=== PATIENT | male | born 1960 ===

== ENCOUNTER 2020-10-22 19:43 | Observation (INO) | payer OTHER ==
--- NOTE | 2020-10-22 22:07 | Event Note ---
ED Screening Note Date of service: 10/22/20 Time: 22:06 ED Screening Note: This initial assessment/diagnostic orders/clinical plan/treatment(s) is/are subject to change based on patients health status, clinical progression and re- assessment by fellow clinical providers in the ED. Further treatment and workup at subsequent clinical providers discretion. Patient/guardian urged not to elope from the ED as their condition may be serious if not clinically assessed and managed. Initial orders include: This is a 60-year-old male in police custody came from the correction with complaints of feeling tired. He was sent to the emergency room for evaluation because of a low heart rate. On examination patient appears to be in no acute distress respiration easy unlabored lungs clear he denies chest pain and shortness of breath his heart rate is 49
[2020-10-22 22:47] LABS: Hematocrit 39.4 % (35.5-45.6); Hemoglobin 12.9 gm/dl (11.8-15.2); Mean Corpuscular HGB Conc 33 % (32-34); Mean Corpuscular Volume 81 fl (84-94); Platelet Count 221 K/mm3 (140-440); Red Cell Distribution Width 13.6 % (13.2-15.2)
[2020-10-22 23:08] LABS: Alanine Aminotransferase 16 units/L (7-56); Blood Urea Nitrogen 21 mg/dL (9-20); Calcium 8.8 mg/dL (8.4-10.2); Hemolysis Index 10
[2020-10-22 23:21] LABS: Total Cells Counted 100
[2020-10-22 23:22] LABS: Band Neutrophils # (Manual) 0.1 K/mm3; RBC Morphology Normal
[2020-10-22 23:24] LABS: BUN/Creatinine Ratio 30
--- NOTE | 2020-10-23 04:07 | Emergency Department Report ---
ED Palpitations HPI - General Chief Complaint: Arrhythmia/Palpitations Stated Complaint: WEAKNESS Time Seen by Provider: 10/23/20 03:28 Source: patient Mode of arrival: Ambulatory Limitations: No Limitations - History of Present Illness Initial Comments: 60-year-old male, history of hypertension, hyperlipidemia, GERD, depression, diabetes, seizures, presents to ED from [facility] with dizziness and bradycardia. Patient states he went to the [facility] at the [facility] to get his insulin for the day. He reported that he was feeling dizzy, lightheaded, and fatigued. Patient states he thought his glucose may be low because he had not eaten. Paperwork from the [facility] shows that vitals were taken and his heart rate was documented at 37, with blood pressure 130/73. Blood glucose was 94. Patient was transferred to the ED for symptomatic bradycardia. Patient denies any dizziness currently. He also denies any nausea, vomiting, chest pain, shortness of breath. -: This evening Context: occured during rest Associated Symptoms: near-syncope. denies: chest pain, shortness of breath, syncope, nausea/vomiting, cough - Related Data Home Medications Medication Instructions Recorded Confirmed Last Taken AtorvaSTATin 10/22/20 Unknown DULoxetine 10/22/20 Unknown Losartan Potassium 10/22/20 Unknown NovoLIN 70/30 10/22/20 Unknown Prilosec 10/22/20 Unknown metFORMIN 10/22/20 Unknown Allergies Allergy/AdvReac Type Severity Reaction Status Date / Time Penicillins Allergy Hives Verified 10/22/20 22:15 ED Review of Systems ROS: Stated complaint: WEAKNESS Other details as noted in HPI Comment: All other systems reviewed and negative Constitutional: denies: chills, fever Respiratory: denies: cough, shortness of breath Cardiovascular: denies: chest pain, palpitations Neurological: other (Patient reports dizziness) ED Past Medical Hx - Past Medical History Previous Medical History?: Yes Hx Hypertension: Yes Hx Diabetes: Yes Additional medical history: High Cholesterol - Surgical History Past Surgical History?: No - Social History Smoking Status: Never Smoker Substance Use Type: None - Medications Home Medications: Home Medications Medication Instructions Recorded Confirmed Last Taken Type AtorvaSTATin 10/22/20 Unknown History DULoxetine 10/22/20 Unknown History Losartan Potassium 10/22/20 Unknown History NovoLIN 70/30 10/22/20 Unknown History Prilosec 10/22/20 Unknown History metFORMIN 10/22/20 Unknown History ED Physical Exam - General Limitations: No Limitations General appearance: alert, in no apparent distress - Head Head exam: Present: atraumatic, normocephalic - Eye Eye exam: Present: normal appearance, EOMI - ENT ENT exam: Present: mucous membranes moist - Neck Neck exam: Present: normal inspection - Respiratory Respiratory exam: Present: normal lung sounds bilaterally. Absent: respiratory distress - Cardiovascular Cardiovascular Exam: Present: normal rhythm, bradycardia - GI/Abdominal GI/Abdominal exam: Present: soft. Absent: distended, tenderness - Extremities Exam Extremities exam: Present: normal inspection - Neurological Exam Neurological exam: Present: alert, oriented X3 - Psychiatric Psychiatric exam: Present: normal affect, normal mood - Skin Skin exam: Present: warm, dry, intact, normal color ED Course Vital Signs 10/22/20 10/23/20 21:58 03:40 Temperature 97.4 F L Pulse Rate 50 L 48 L Respiratory 18 18 Rate Blood Pressure 156/78 Blood Pressure 137/77 [Left] O2 Sat by Pulse 99 99 Oximetry ED Medical Decision Making - Lab Data Result diagrams: 10/22/20 22:23 10/22/20 22:23 - EKG Data -: EKG Interpreted by Me EKG shows normal: sinus rhythm, axis, intervals, QRS complexes, ST-T waves Rate: bradycardia (rate 46) - Medical Decision Making 60-year-old male presents to ED from [facility] with symptomatic bradycardia. Patient reports feeling fatigued, dizzy and lightheaded. At the time his vitals were taken and his heart rate was found to be 37. Here in the ED heart rate has been in the 40s. 46 on EKG. Blood pressure is stable. He denies any dizziness at this time. EKG shows sinus bradycardia, no ST elevations. No change on repeat EKG. Patient does not appear to be on any beta-blockers. Med list includes Metformin, Novolin, omeprazole, atorvastatin, losartan, duloxetine. Will admit to hospitalist, Dr. Granda, due to symptomatic bradycardia Critical care attestation.: If time is entered above; I have spent that time in minutes in the direct care of this critically ill patient, excluding procedure time. ED Disposition Clinical Impression: Symptomatic bradycardia Disposition: OP ADMIT IP TO THIS HOSP Is pt being admited?: Yes Condition: Stable Time of Disposition: 04:26
--- NOTE | 2020-10-23 04:58 | History and Physical Report ---
History of Present Illness Date of examination: 10/23/20 Date of admission: 10/23/20 Chief complaint: Symptomatic bradycardia History of present illness: 60-year-old male, history of hypertension, hyperlipidemia, GERD, depression, diabetes, seizures, presents to ED from [facility] with dizziness and bradycardia. Patient states he went to the [facility] at the [facility] to get his insulin for the day. He reported that he was feeling dizzy, lightheaded, and fa tigued. Patient states he thought his glucose may be low because he had not eaten. Paperwork from the [facility] shows that vitals were taken and his heart rate was documented at 37, with blood pressure 130/73. Blood glucose was 94. Patient was transferred to the ED for symptomatic bradycardia. Patient denies any dizziness currently. He also denies any nausea, vomiting, chest pain, shortness of breath. Patient seen in ED at bedside. Alert oriented x3 non-South Sudanese speaking. Got most of the Information with assistance of the russian language instructor I reviewed lab and vital signs. Blood pressure elevated with low heart rates in 30s and 40s. Patient reports history of hypertension, hyperlipidemia, gastroesophageal reflux disease, diabetes and anxiety depression. Checks x-ray has been ordered. Troponin done negative. At assessment, patient denies chest pain, shortness of breath, nausea and vomiting. Patient also denies tobacco use, alcohol, and illicit drug use. Other ED work-up WBC 7.3, hemoglobin is 12.9, platelets 221, sodium 143, potassium 4.2, creatinine 0.7, glucose serum 111. Checks x-ray-No acute finding Past History Past Medical History: diabetes, GERD, hypertension, hyperlipidemia, seizures Past Surgical History: Other (head laceration/surgery) Social history: other (An inmate) Family history: diabetes (one of the parent diet of heart attack), hypertension Medications and Allergies Allergies Allergy/AdvReac Type Severity Reaction Status Date / Time Penicillins Allergy Hives Verified 10/22/20 22:15 Home Medications Medication Instructions Recorded Confirmed Last Taken Type AtorvaSTATin 10/22/20 Unknown History DULoxetine 10/22/20 Unknown History Losartan Potassium 10/22/20 Unknown History NovoLIN 70/30 10/22/20 Unknown History Prilosec 10/22/20 Unknown History metFORMIN 10/22/20 Unknown History Review of Systems Constitutional: other (syncope), no chronic headaches Ears, nose, mouth and throat: no epistaxis Cardiovascular: no lightheadedness Respiratory: no excessive sputum Gastrointestinal: no melena Rectal: no hemorrhoids Integumentary: no rash, no pruritis Neurological: no head injury Exam - Constitutional Vitals: Temp Pulse Resp BP Pulse Ox 97.4 F L 48 L 18 137/77 99 10/22/20 21:58 10/23/20 03:40 10/23/20 03:40 10/23/20 03:40 10/23/20 03:40 General appearance: Present: no acute distress, well-nourished - EENT Eyes: Present: PERRL ENT: hearing intact, clear oral mucosa - Neck Neck: Present: supple, normal ROM - Respiratory Respiratory effort: normal Respiratory: bilateral: CTA - Cardiovascular Rhythm: other (Bradycardia) Heart Sounds: Present: S1 & S2. Absent: rub, click - Extremities Extremities: pulses symmetrical, No edema Peripheral Pulses: within normal limits - Abdominal General gastrointestinal: Present: soft, non-tender, non-distended, normal bowel sounds Male genitourinary: Present: normal - Integumentary Integumentary: Present: clear, warm, dry - Musculoskeletal Musculoskeletal: gait normal, strength equal bilaterally - Psychiatric Psychiatric: appropriate mood/affect, intact judgment & insight - Neurologic Neurologic: CNII-XII intact, moves all extremities - Allied Health Allied health notes reviewed: nursing HEART Score - HEART Score Troponin: Troponin T < 0.010 ng/mL (0.00-0.029) 10/23/20 00:00 Results - Labs CBC & Chem 7: 10/22/20 22:23 10/22/20 22:23 Labs: Abnormal lab results 10/22/20 10/22/20 Range/Units 22:23 22:23 MCV 81 L (84-94) fl MCH 26 L (28-32) pg Seg Neuts % (Manual) 77.0 H (40.0-70.0) % Lymphocytes # (Manual) 1.0 L (1.2-5.4) K/mm3 Chloride 108.3 H (98-107) mmol/L BUN 21 H (9-20) mg/dL Creatinine 0.7 L (0.8-1.3) mg/dL Glucose 111 H (75-100) mg/dL Assessment and Plan - Patient Problems (1) Symptomatic bradycardia Current Visit: Yes Status: Acute Plan to address problem: ? cause likely secondary to low blood sugar/cardiac related monitor vital signs and heart rate Chest x-ray -follow-up with results Monitor cardiac enzymes and twelve-lead EKG Echocardiogram-f/u with result Consulted agronomy location manager (2) Diabetes Current Visit: Yes Status: Acute Plan to address problem: Check hemoglobin A1c Monitor blood sugar with sliding scale protocol Encourage healthy diet more fruits and vegetable and avoid foods rich in concentrated sweeteners. (3) Hypertension Current Visit: Yes Status: Acute Plan to address problem: Elevated blood pressure Monitor blood pressure, resume home antihypertensive As needed hydralazine Adjust blood pressure medicine if needed (4) Anxiety Current Visit: Yes Status: Acute Plan to address problem: Resume home antianxiety (5) Hyperlipidemia Current Visit: Yes Status: Acute Plan to address problem: Resume home statin (6) Gastroesophageal reflux Current Visit: Yes Status: Acute Plan to address problem: Continue PPI
[2020-10-23] MEDS ORDERED: METOCLOPRAMIDE 10 MG/2 ML INJ IV PRN (05:02)
[2020-10-23] MEDS ORDERED: ALUM-MAG HYDROXIDE-SIMETHICONE 200-200-20MG/5ML ORAL LIQD 30 ML PO PRN (05:02)
[2020-10-23] MEDS ORDERED: ACETAMINOPHEN 325 MG TAB PO PRN (05:02)
[2020-10-23] MEDS ORDERED: HEPARIN 10,000 UNITS/10 ML VIAL IV PRN (05:02)
[2020-10-23] MEDS ORDERED: ONDANSETRON 4 MG/2 ML INJ IV PRN (05:02)
[2020-10-23] MEDS ORDERED: traMADol 50 MG TAB PO PRN (05:13)
[2020-10-23] MEDS ORDERED: traZODone 50 MG TAB PO PRN (05:13)
--- NOTE | 2020-10-23 05:17 | XRay Report ---
CHEST 1 VIEW 10/23/2020 4:35 AM INDICATION / CLINICAL INFORMATION: bradycardia. COMPARISON: None available. FINDINGS: SUPPORT DEVICES: None. HEART / MEDIASTINUM: No significant abnormality. LUNGS / PLEURA: No significant pulmonary or pleural abnormality. No pneumothorax. ADDITIONAL FINDINGS: No significant additional findings. IMPRESSION: 1. No acute findings. Signer Name: Espinoza Hwang MD Signed: 10/23/2020 5:12 AM Workstation Name: [id number]
--- NOTE | 2020-10-23 05:37 | Cat Scan Report ---
CT HEAD WITHOUT CONTRAST INDICATION / CLINICAL INFORMATION: Syncope. TECHNIQUE: All CT scans at this location are performed using CT dose reduction for ALARA by means of automated exposure control. COMPARISON: None available. FINDINGS: HEMORRHAGE: None. EXTRA-AXIAL SPACES: Normal in size and morphology for the patient's age. VENTRICULAR SYSTEM: Normal in size and morphology for the patient's age. CEREBRAL PARENCHYMA: No significant abnormality. No acute territorial infarct. MIDLINE SHIFT / HERNIATION: None. CEREBELLUM / BRAINSTEM: No significant abnormality. ORBITS: Normal as visualized. SOFT TISSUES: No significant abnormality. SKULL: No significant abnormality. PARANASAL SINUSES / MASTOID AIR CELLS: Normal as visualized. ADDITIONAL FINDINGS: None. IMPRESSION: 1. No acute intracranial abnormality. Signer Name: Espinoza Hwang MD Signed: 10/23/2020 5:32 AM Workstation Name: [id number]
[2020-10-23] MEDS: hydrALAZINE 20 MG/1 ML INJ IV PRN ×2 (06:14→12:10)
[2020-10-23] MEDS: ENOXAPARIN 40 MG/0.4 ML INJ SUB-Q SCH (09:45)
[2020-10-23] MEDS ORDERED: LOSARTAN 50 MG TAB PO SCH (10:00)
[2020-10-23] MEDS ORDERED: FAMOTIDINE 20 MG/2 ML INJ IV SCH (10:00)
--- NOTE | 2020-10-23 11:34 | Event Note ---
Date: 10/23/20 full consult dictated thanks
--- NOTE | 2020-10-23 13:09 | Event Note ---
Date: 10/23/20 Patient admitted for symptomatic bradycardia Patient chart reviewed cardiology consult appreciated
--- NOTE | 2020-10-23 13:35 | Consultation ---
Referred by hospitalist service. HISTORY OF PRESENT ILLNESS: The patient is a pleasant 60-year-old gentleman referred by the hospitalist service for evaluation for syncope, questionable symptomatic bradycardia. He has a history of hypertension, hyperlipidemia, GERD, depression, diabetes, seizures. He presents to the Emergency Room from [facility] with dizziness and bradycardia. Some question of his heart rate being in the 30s. He is seen on tele. Denies any symptoms. No chest pain, shortness of breath. Guard is present. No syncope or presyncope since hospitalized. No chest pain, fevers, chills, nausea or vomiting. SOCIAL HISTORY: Denies tobacco or alcohol use. PAST MEDICAL HISTORY: As aforementioned. FAMILY HISTORY: Diabetes, one parent of heart attack and hypertension. ALLERGIES: PENICILLIN. MEDICATIONS: Inpatient and outpatient medications reviewed. REVIEW OF SYSTEMS: As per HPI. PHYSICAL EXAMINATION: VITAL SIGNS: Blood pressure is 120/80, afebrile. Tele reveals sinus rhythm in the high 40s and 50s. No AV block or pauses. O2 sats 99% on room air. GENERAL: This is a middle-aged, well-nourished male in no apparent distress, oriented x 3. HEENT: Sclerae are anicteric. PERRLA. NECK: Supple, no masses, no JVD. CHEST: Clear to auscultation bilaterally. Good air movement. CARDIOVASCULAR: Regular rhythm, S1, S2. ABDOMEN: Soft, nontender, nondistended. Normoactive bowel sounds in all 4 quadrants. No mass or bruits. EXTREMITIES: No cyanosis, clubbing, edema. Good peripheral pulses. SKIN: Intact. No rashes. LABORATORY DATA: Chest x-ray is unremarkable per radiology. Head CT also unremarkable per radiology. EKG reveals sinus bradycardia, heart rate of 50. No ST segment shift. Troponin negative x 1. Creatinine 0.7, potassium 4.2. Platelets 221, hemoglobin 12.9, hematocrit 39.4. ASSESSMENT AND PLAN: In summary, the patient is a 60-year-old gentleman who is referred from [facility] for questionable syncope, sinus bradycardia. He is normotensive or hypertensive without evidence of AV block or pathological bradycardia. We will check an echocardiogram and stress test in a.m. DVT prophylaxis. Thank you for this consultation. I will be happy to follow along with you. JOB# [id number] SBCarlyle/YAMILETH
[2020-10-23 13:59] LABS: INR 1.07 (0.87-1.13)
[2020-10-23] MEDS: DULoxetine 30 MG CAP PO SCH (14:02)
[2020-10-23] MEDS: PANTOPRAZOLE 40 MG TAB PO SCH (14:02)
[2020-10-23 14:05] LABS: Creatine Kinase MB 2.3 ng/mL (0.0-4.0)
[2020-10-23] MEDS: metFORMIN 500 MG TAB PO SCH (16:39)
[2020-10-23] MEDS: INSULIN NPH/REGULAR 70/30 INJ SUB-Q SCH (16:40)
[2020-10-23] MEDS: INSULIN LISPRO 100 UNIT/ML SUB-Q SCH ×2 (16:40→21:54)
[2020-10-23] MEDS ORDERED: NON-FORMULARY EACH (Metformin 500 MG) PO SCH (22:00)
[2020-10-24] MEDS: hydrALAZINE 20 MG/1 ML INJ IV PRN (00:15)
[2020-10-24 01:41] LABS: Bacteria,Urine 1+ /HPF (Negative); Bilirubin,Urine NEG (Negative); Blood,Urine NEG (Negative); Color,Urine Yellow (Yellow); Mucus,Urine FEW /HPF
[2020-10-24 08:07] LABS: Basophils % (Auto) 0.7 % (0.0-1.8); Eosinophils # (Auto) 0.1 K/mm3 (0.0-0.4); Eosinophils % (Auto) 1.8 % (0.0-4.3); Hematocrit 38.6 % (35.5-45.6); Hemoglobin 12.6 gm/dl (11.8-15.2); Lymphocytes # (Auto) 2.1 K/mm3 (1.2-5.4); Lymphocytes % (Auto) 30.3 % (13.4-35.0); Mean Corpuscular HGB Conc 33 % (32-34); Mean Corpuscular Volume 80 fl (84-94); Monocytes # (Auto) 0.5 K/mm3 (0.0-0.8); Monocytes % (Auto) 6.5 % (0.0-7.3); Platelet Count 232 K/mm3 (140-440); Red Blood Count 4.82 M/mm3 (3.65-5.03)
[2020-10-24] MEDS: INSULIN NPH/REGULAR 70/30 INJ SUB-Q SCH (08:15)
[2020-10-24] MEDS: INSULIN LISPRO 100 UNIT/ML SUB-Q SCH ×2 (08:15→12:41)
[2020-10-24] MEDS: metFORMIN 500 MG TAB PO SCH (08:15)
[2020-10-24 08:41] LABS: BUN/Creatinine Ratio 31; Blood Urea Nitrogen 25 mg/dL (9-20); Calcium 8.2 mg/dL (8.4-10.2); Hemolysis Index 5
[2020-10-24] MEDS ORDERED: REGADENOSON 0.4 MG/5 ML INJ IV ONE ×2 (08:45→08:47)
[2020-10-24] MEDS ORDERED: LOSARTAN 50 MG TAB PO SCH (10:00)
[2020-10-24] MEDS ORDERED: LOSARTAN POTASSIUM 100 MG PO SCH (10:00)
[2020-10-24] MEDS: ENOXAPARIN 40 MG/0.4 ML INJ SUB-Q SCH (10:20)
[2020-10-24] MEDS: PANTOPRAZOLE 40 MG TAB PO SCH (10:20)
[2020-10-24] MEDS: DULoxetine 30 MG CAP PO SCH (10:20)
[2020-10-24 10:26] VITALS: BP 179/80
--- NOTE | 2020-10-24 10:38 | Treadmill Report ---
NUCLEAR STRESS TEST REFERRING PHYSICIAN: Hospitalist Service. PROTOCOL: The patient was assessed in postoperative state, given 10 mCi of technetium 99m at rest. The patient underwent rest imaging. The patient underwent Lexiscan stress test per standard protocol. At peak stress, the patient was given 26 mCi of technetium 99m. Shortly thereafter, the patient underwent stress imaging. Raw imaging reveals mild GI artifact, no significant motion artifact. SPECT images examined carefully in horizontal long axis, vertical long axis, short axis views. There is normal mitral uptake of radioisotope in all four segments. No evidence of significant fixed or reversible perfusion defects suggestive of prior infarction or ischemia. Gated wall motion reveals normal systolic thickening, calculated ejection fraction of 58%. No TID. CONCLUSIONS: 1. Normal myocardial perfusion scan without evidence of active ischemia or prior infarction. 2. Normal left ventricular systolic performance without evidence of transient ischemic dilatation or stress-induced segmental wall motion abnormalities. s JOB# [id number] DEREJE/YAMILETH
--- NOTE | 2020-10-24 10:44 | Progress Note ---
Assessment and Plan tte reviewed - EF 50-55%, mild LVH, no significant abnormalities. S/p lexiscan MPI stress test today which was negative. tele reviewed - in SR HR 60s with no events noted overnight. Currently stable cardiac status. Pt may discharge from cardiology standpoint. Cont to avoid AV jose j blocking agents. Recommend pt follow up in our office with Dr. Susan Chandler within 2 weeks ([phone]). The patient has been seen in conjunction with Dr. Susan Chandler who agrees with the assessment and plan of care. - Patient Problems (1) Syncope Current Visit: Yes Status: Suspected (2) Sinus bradycardia Current Visit: Yes Status: Acute (3) Hypertension Current Visit: Yes Status: Chronic (4) Hyperlipidemia Current Visit: Yes Status: Chronic (5) Diabetes Current Visit: Yes Status: Chronic (6) Anxiety Current Visit: Yes Status: Chronic Subjective Date of service: 10/24/20 Principal diagnosis: sinus bradycardia; ? syncope Interval history: pt for stress test today, no current cardiac complaints. tele reviewed - in SR HR 60s with no events noted overnight. Objective Last Vital Signs Temp 97.8 F 10/24/20 07:31 Pulse 64 10/24/20 10:20 Resp 18 10/24/20 07:00 BP 179/80 10/24/20 10:20 Pulse Ox 98 10/24/20 07:31 - Physical Examination General: No Apparent Distress HEENT: Positive: PERRL, Normocephaly, Mucus Membranes Moist Neck: Positive: neck supple, trachea midline Cardiac: Positive: Reg Rate and Rhythm, S1/S2 Lungs: Positive: clear to auscultation Neuro: Positive: Grossly Intact Abdomen: Negative: Tender Skin: Negative: Rash Musculoskeletal: No Pain Extremities: Absent: edema - Labs and Meds Cardiac Enzymes 10/23/20 Range/Units 13:23 CK-MB (CK-2) 2.3 (0.0-4.0) ng/mL Coagulation 10/23/20 Range/Units 13:23 PT 13.8 (12.2-14.9) Sec. INR 1.07 (0.87-1.13) CBC 10/24/20 Range/Units 06:54 WBC 7.0 (4.5-11.0) K/mm3 RBC 4.82 (3.65-5.03) M/mm3 Hgb 12.6 (11.8-15.2) gm/dl Hct 38.6 (35.5-45.6) % Plt Count 232 (140-440) K/mm3 Lymph # (Auto) 2.1 (1.2-5.4) K/mm3 [place] # (Auto) 0.5 (0.0-0.8) K/mm3 Eos # (Auto) 0.1 (0.0-0.4) K/mm3 Baso # (Auto) 0.0 (0.0-0.1) K/mm3 Comprehensive Metabolic Panel 10/24/20 Range/Units 06:54 Sodium 146 H (137-145) mmol/L Potassium 4.1 (3.6-5.0) mmol/L Chloride 111.1 H (98-107) mmol/L Carbon Dioxide 26 (22-30) mmol/L BUN 25 H (9-20) mg/dL Creatinine 0.8 (0.8-1.3) mg/dL Glucose 116 H (75-100) mg/dL Calcium 8.2 L (8.4-10.2) mg/dL - Imaging and Cardiology EKG: report reviewed, image reviewed Echo: report reviewed - Telemetry EKG Rhythm: Sinus Rhythm
[2020-10-24] MEDS ORDERED: ASPIRIN 81 MG TAB CHEW PO SCH (11:00)
--- NOTE | 2020-10-24 11:01 | Discharge Summary ---
Providers - Providers Date of Admission: 10/23/20 04:26 Date of discharge: 10/24/20 Attending physician: HUNTER BARNES 10/23/20 05:02 Consult to Physician [CONS] Stat Comment: Consulting Provider: TIERRA BOYD Physician Instructions: Reason For Exam: Symptomatic Bradycardia Primary care physician: FEDERAL JAVA DEVELOPER Hospitalization Condition: Stable Procedures: tte reviewed - EF 50-55%, mild LVH, no significant abnormalities. S/p lexiscan MPI stress test today which was negative. tele reviewed - in SR HR 60s with no events noted overnight. Currently stable cardiac status. Hospital course: 60-year-old male, history of hypertension, hyperlipidemia, GERD, depression, diabetes, seizures, presents to ED from [facility] with dizziness and bradycardia. Patient states he went to the [facility] at the [facility] to get his insulin for the day. He reported that he was feeling dizzy, lightheaded, and fatigued. Patient states he thought his glucose may be low because he had not eaten. Paperwork from the [facility] shows that vitals were taken and his heart rate was documented at 37, with blood pressure 130/73. Blood glucose was 94. Patient was transferred to the ED for symptomatic bradycardia. Patient denies any dizziness currently. He also denies any nausea, vomiting, chest p ain, shortness of breath. Patient seen in ED at bedside. Alert oriented x3 non-Vietnamese speaking. Got most of the Information with assistance of the historic sites registrar I reviewed lab and vital signs. Blood pressure elevated with low heart rates in 30s and 40s. Patient reports history of hypertension, hyperlipidemia, gastroesophageal reflux disease, diabetes and anxiety depression. Checks x-ray has been ordered. Troponin done negative. At assessment, patient denies chest pain, shortness of breath, nausea and vomiting. Patient also denies tobacco use, alcohol, and illicit drug use. Other ED work-up WBC 7.3, hemoglobin is 12.9, platelets 221, sodium 143, potassium 4.2, creatinine 0.7, glucose serum 111. Checks x-ray-No acute finding Past History Past Medical History: diabetes, GERD, hypertension, hyperlipidemia, seizures Past Surgical History: Other (head laceration/surgery) Social history: other (An inmate) Family history: diabetes (one of the parent diet of heart attack), hypertension Assessment and Plan - Patient Problems (1) Symptomatic bradycardia Current Visit: Yes Status: Acute Plan to address problem: Resolved (2) Diabetes Current Visit: Yes Status: Acute Plan to address problem: Check hemoglobin A1c Monitor blood sugar with sliding scale protocol Encourage healthy diet more fruits and vegetable and avoid foods rich in concentrated sweeteners. (3) Hypertension Current Visit: Yes Status: Acute Plan to address problem: Elevated blood pressure Monitor blood pressure, resume home antihypertensive As needed hydralazine Adjust blood pressure medicine if needed (4) Anxiety Current Visit: Yes Status: Acute Plan to address problem: Resume home antianxiety (5) Hyperlipidemia Current Visit: Yes Status: Acute Plan to address problem: Resume home statin (6) Gastroesophageal reflux Current Visit: Yes Status: Acute Plan to address problem: Continue PPI Disposition: DC-01 TO HOME OR SELFCARE Time spent for discharge: 35 minutes - Discharge Diagnoses (1) Gastroesophageal reflux Status: Acute (2) Symptomatic bradycardia Status: Acute (3) Diabetes Status: Chronic (4) Hyperlipidemia Status: Chronic (5) Hypertension Status: Chronic Core Measure Documentation - Palliative Care Palliative Care/ Comfort Measures: Not Applicable - Core Measures Any of the following diagnoses?: none Exam - Constitutional Vitals: Temp Pulse Resp BP Pulse Ox 97.8 F 64 18 179/80 98 10/24/20 07:31 10/24/20 10:20 10/24/20 07:00 10/24/20 10:20 10/24/20 07:31 General appearance: Present: no acute distress, well-nourished - EENT Eyes: Present: PERRL ENT: hearing intact, clear oral mucosa - Neck Neck: Present: supple, normal ROM - Respiratory Respiratory effort: normal Respiratory: bilateral: CTA - Cardiovascular Heart rate: 78 Rhythm: regular Heart Sounds: Present: S1 & S2. Absent: rub, click - Extremities Extremities: pulses symmetrical, No edema Peripheral Pulses: within normal limits - Abdominal General gastrointestinal: Present: soft, non-tender, non-distended, normal bowel sounds Male genitourinary: Present: normal - Integumentary Integumentary: Present: clear, warm, dry - Musculoskeletal Musculoskeletal: gait normal, strength equal bilaterally - Psychiatric Psychiatric: appropriate mood/affect, intact judgment & insight - Neurologic Neurologic: CNII-XII intact, moves all extremities - Allied Health Allied health notes reviewed: nursing, case management Plan Activity: no restrictions Diet: low fat, low cholesterol, low salt Follow up with: PRIMARY CARE, [Primary Care Provider] - 3-5 Days TIERRA BOYD MD [Staff Physician] - 7 Days
[2020-10-24] MEDS ORDERED: hydrALAZINE 25 MG TAB PO SCH (14:00)
== END 2020-10-24 13:05 | disposition home or self-care (01) ==
LOC: ED 19:43 → 4A 10-23 04:26
PROVIDERS: ADMIT Internal Medicine Geriatric Medicine; ATTEND Internal Medicine
DX: R00.1 Bradycardia, unspecified (principal); I10 Essential (primary) hypertension; E11.9 Type 2 diabetes mellitus without complications; F41.9 Anxiety disorder, unspecified; K21.9 Gastro-esophageal reflux disease without esophagitis; E78.5 Hyperlipidemia, unspecified; F32.9 Major depressive disorder, single episode, unspecified; R55 Syncope and collapse; R56.9 Unspecified convulsions; Z98.890 Other specified postprocedural states; Z79.4 Long term (current) use of insulin
CPT/HCPCS: 36415; 70450; 71045; 78452; 80048; 80053; 81001; 82550; 82553; 82962; 83036; 83735; 84443; 84484; 85007; 85025; 85610; 93005; 93017; 93306; 96372; 96374; 96375; 96376; 99284; A9270; A9502; G0378; J0360; J1650; J2785; J1815